=== PATIENT | male | born 1970 | race Caucasian/White ===

== ENCOUNTER 2024-07-16 00:22 | Emergency (ER) | payer BC, SELFPAY ==
[2024-07-16] VITALS (8 sets, daily range): BP systolic 97–125; BP diastolic 57–75; BMI 24.4
[2024-07-16 01:17] LABS: % Immature Granulocytes 0.2 % (0-0.5); % Lymphocytes 41.6 % (20.5-51.1); % Monocytes 6.3 % (1.7-9.3); % Neutrophils 49.9 % (42.2-75.2); Absolute Basophils 0.1 10^3/uL (0-0.2); Absolute Eosinophils 0.1 10^3/uL (0-0.7); Absolute Lymphocytes 2.1 10^3/uL (1.2-3.4); Absolute Monocytes 0.3 10^3/uL (0.1-0.6); Absolute Neutrophils 2.5 10^3/uL (1.4-6.5); Hematocrit 45.7 % (39.0-52.0); Hemoglobin 15.3 g/dL (13.0-18.0); Mean Corp Hgb Conc. 33.5 g/dL (33.0-37.0); Mean Corpuscular Hgb 32.2 pg (27.0-31.0); Mean Corpuscular Volume 96.2 fL (80.0-94.0); Mean Platelet Volume 9.2 fL (7.4-10.4); Nucleated Red Blood Cells % 0 % (-); Platelet Count 177 10^3/uL (130-400); Red Blood Cell Count 4.75 10^6/uL (4.70-6.10); Red Cell Dist. Width 13.2 % (11.5-14.5); White Blood Cell Count 4.9 10^3/uL (4.8-10.8)
[2024-07-16 01:18] LABS: Urine Albumin Negative (Neg - Trace); Urine Bilirubin Negative (Negative); Urine Character Clear (Clear); Urine Color Yellow; Urine Glucose Negative (Negative); Urine Ketone Negative (Negative); Urine Leukocyte Negative (Negative); Urine Nitrite Negative (Negative); Urine Occult Blood Negative (Negative); Urine Urobilinogen Negative (Neg - 1+)
[2024-07-16 01:37] LABS: ALT (SGPT) 52 U/L (0-50); AST (SGOT) 54 U/L (17-59); Albumin 4.7 g/dl (3.5-5.0); Alkaline Phosphatase 62 U/L (38-126); Blood Urea Nitrogen 9 mg/dl (9-20); Calcium 8.8 mg/dl (8.4-10.2); Carbon Dioxide 26 mmol/L (22-30); Chloride 107 mmol/L (98-107); Creatine Phosphokinase 184 U/L (55-170); Estimated Creatinine Clearance 108 ml/min; Glucose 91 mg/dl (70-99); Potassium 4.2 mmol/L (3.5-5.1); Sodium 147 mmol/L (135-145); Total Bilirubin 0.2 mg/dl (0.2-1.3); Total Protein 7.4 g/dl (6.3-8.2); eGFR > 60.00
[2024-07-16 01:40] LABS: Ammonia < 9 umol/L (9-30)
[2024-07-16 03:05] LABS: Alcohol 391 mg/dl
[2024-07-16 03:10] LABS: Amphetamines Negative (Negative); Barbiturates Negative (Negative); Benzodiazepines Negative (Negative); Buprenorphine Negative (Negative); Cocaine Negative (Negative); Marijuana Negative (Negative); Methadone Negative (Negative); Methamphetamines Negative (Negative); Opiates Negative (Negative); Phencyclidine Negative (Negative); Tricyclic Antidepressants Negative (Negative)
--- NOTE | 2024-07-16 03:50 | EDRN ---
At 03:40 AM, RN transported pt. to [facility] via stretcher. Pt. opening eyes spontaneously, following commands, and speaking;however speech is slurred. When pt. speaks, breath smells of ETOH.
--- NOTE | 2024-07-16 07:29 | ED.GENMED ---
History of Present Illness
General
Chief Complaint: Change in Mental Status
Source: patient and spouse
Time Seen by Provider: 07/16/24 06:00
History of Present Illness
History of Present Illness:
This a 53-year-old male who presents with a change in mental status. Patient's spouse states that he today was found on the ground. She thought he was because he was so somnolent and unresponsive. She called 911. The patient's spouse adds
that for some time the patient has had episodes of altered mental status where she notes his eyes are bloodshot, he has a abnormal odor, his gait is off and he has a hand tremor. She states that his confusion is worse during those times. She
states she has seen a neurologist and in fact is seeing to neurologist. They are concerned about frontal temporal dementia. No other trauma noted. No fevers reported.
Past History
Past History
ED Past Medical History: None
Social History
Living: with family
Phy Exam
Physical Exam
Physical Exam:
CONSTITUTIONAL Patient alert and oriented to person, place and time. Well-appearing. Vital signs reviewed.
HEAD atraumatic, normocephalic.
EYES eyelids normal to inspection, Extraocular muscles intact, Conjunctiva normal, Sclera normal.
NECK normal range of motion, Trachea midline, no jugular venous distention.
RESPIRATORY CHEST No respiratory distress noted, Chest expansion equal, Bilateral breath sounds clear.
CARDIOVASCULAR regular rate and rhythm, Heart sounds normal.
ABDOMEN abdomen nontender, Bowel sounds normal. No distention.
BACK normal inspection, no obvious deformities
UPPER EXTREMITY range of motion normal, Motor strength normal, no cyanosis, no edema.
LOWER EXTREMITY range of motion normal, Motor strength normal, no cyanosis, no edema.
NEURO Speech normal, No focal motor deficits, [place] coma scale 15, Memory normal, Cranial Nerves intact to screening exam. Gait normal
SKIN skin warm, dry, and normal in color.
Course
Orders/Labs/Results
Orders:
Orders
07/16/24 00:41
CT Cervical Spine W/o Iv Contr Urgent
Comment:
Reason For Exam: unwitnessed fall
CT Head W/o Iv Contrast Urgent
Comment:
Reason For Exam: fall, altered mental status
07/16/24 00:50
Alcohol Urgent
CPK [Creatine Phosphokinase] Urgent
Complete Blood Count/With Diff Urgent
Comprehensive Metabolic Panel Urgent
Folate Urgent
Comment: ADD ON
UA Reflex to Culture [Urinalysis Reflex To Culture] Urgent
Date Specimen was Collected: 07/16/24
Time Specimen was Collected: 00:42
Urine Drug Abuse Screen Urgent
Date Specimen was Collected: 07/16/24
Time Specimen was Collected: 00:42
Vitamin B12 Urgent
Comment: ADD ON
07/16/24 01:15
Ammonia Urgent
07/16/24 02:05
Add On- LAB Urgent
Tests Added?: alcohol level, urine drug screen
07/16/24 03:19
CR Foot - Right Min 3 Views Urgent
Comment:
Reason For Exam: fall, swelling
07/16/24 06:41
Add On- LAB Urgent
Tests Added?: B12, folate
Abnormal Lab Results
07/16/24 07/16/24
00:50 01:15
MCV 96.2 H fL
(80.0-94.0)
MCH 32.2 H pg
(27.0-31.0)
Sodium 147 H mmol/L
(135-145)
ALT 52 H U/L
(0-50)
Ammonia < 9 L umol/L
(9-30)
Creatine Kinase 184 H U/L
(55-170)
07/16/24 00:50
07/16/24 00:50
Vital Signs
Initial and Last Documented VS:
Initial Vital Signs
Temp Pulse Resp BP Pulse Ox
98.7 F 76 25 108/71 96
07/16/24 00:28 07/16/24 00:28 07/16/24 00:28 07/16/24 00:28 07/16/24 00:28
Last Documented Vital Signs
Temp Pulse Resp BP Pulse Ox
98.7 F 77 16 125/73 97
07/16/24 00:28 07/16/24 07:00 07/16/24 07:00 07/16/24 07:00 07/16/24 07:00
MDM/Problems Addressed
Differential Diagnosis Includes:
Frontotemporal dementia, intracranial hemorrhage, concussion, electrolyte imbalance, acute alcohol intoxication, overdose, electrolyte imbalance, Wernicke encephalopathy
MDM/Problems Addressed:
Acute alcohol intoxication
*Radiology
Radiology exam reviewed: radiology read reviewed
*Pulse Oximetry
Patient hypoxic: no
*Supply Tech Interpretation
Rate: normal
Interpretation: normal
Rhythm: sinus
*Critical Care Note
Total Time (30-74mins, 75-104mins- exclusive of procedures): 30 minutes
Data Reviewed
Review of Other/Old Records Reveals: Testing (EEG report reviewed from April 2022, [facility])
Source: patient
Prescriptions/Medications Considered But Not Given:
Considered IV thiamine but patient's gait is normal
Patient Management
Escalation/DeEscalation of care consider admission/obs:
Lengthy discussion with the patient. found 3 empty bottles of rum in his backpack in his office. The patient initially denied alcohol exposure. In addition he denies frequent use. He states this was the only time he used alcohol. does
now suspect that his episodes of altered mental status were related to alcohol exposure as whenever the symptoms are the worst she has an abnormal odor. Patient's gait is normal on reassessment and he is awake and alert. I did offer services but
again patient denies frequent use of alcohol. He states this was the only time he exposed himself. I did recommend outpatient follow-up with PCP
ED Attending Note
-
Portions of this chart may have been created with voice recognition software.� Occasional wrong word or��sound alike� substitutions may have occurred due to the inherent limitations of voice recognition software.
Discharge Plan
Departure
Patient Disposition: Home (Routine Discharge)
Date of Disposition: 07/16/24
Time of Disposition: 07:30
Patient with high blood pressure during this ER visit?: No
Discharge Problem:
Acute alcohol intoxication
Instructions: Altered Mental Status (DC), Alcohol Intoxication ED
Prescriptions:
No Action
hydrocodone-acetaminophen 5 MG/500 MG tablet
1 tab PO .Q4-6HPRN PRN (Reason: PAIN) Qty: 20 0RF
levofloxacin 500 MG tablet
500 mg PO DAILY Qty: 5 0RF
Rx Instructions:
.
Referrals:
NONE,* [Family Provider] -
Activity Restrictions/Additional Instructions:
Please stop drinking alcohol. Please see your doctor in the next 1 week for follow-up and reevaluation. Return immediately for difficulty walking, vomiting, changes in mentation or any other concerns
Interventions
Interventions:
*Risk Screen - Suicide Last Done: 07/16/24 00:28
*General Assessment Last Done: 07/16/24 00:28
*Neglect/Abuse Screening Last Done: 07/16/24 00:28
ED- Fall Risk Assessment Last Done: 07/16/24 00:28
*ED COVID-19 Vaccine History Last Done: 07/16/24 00:28
ED-Skin Assessment Last Done: 07/16/24 01:23
ED- Neurological Assessment Last Done: 07/16/24 01:04
ED-Musculoskeletal Assessment Last Done: 07/16/24 01:23
ED Swallowing Screen Last Done: 07/16/24 01:04
Discharge Date and Time
Print Language: FAROESE
[2024-07-16 11:37] LABS: Folate 3.9 ng/ml (2.76-20); Vitamin B12 275 pg/ml (239-931)
== END 2024-07-16 08:02 | disposition home or self-care (01) ==
LOC: EMR 00:22
PROVIDERS: Emergency Medicine; EMERGENCY PHYSICIAN Emergency Medicine
DX: F10.129 Alcohol abuse with intoxication, unspecified (principal); Y90.8 Blood alcohol level of 240 mg/100 ml or more
CPT/HCPCS: 99284; 70450; 72125; 73630; 80053; 80306; 81003; 82077; 82140; 82550; 82607; 82746; 85025